=== PATIENT | female | born 1955 | race Caucasian/White ===

== ENCOUNTER → 2023-10-31 | Outpatient (CLI) | payer MEDICARE | LOC: M WHC 09:48 | PROVIDERS: ATTEND Nurse Practitioner | DX: Z12.31 Encounter for screening mammogram for malignant neoplasm of breast (principal) ==

== ENCOUNTER → 2023-11-18 | Outpatient (CLI) | payer MEDICARE | LOC: M WHC 08:59 | PROVIDERS: ATTEND Nurse Practitioner | DX: R92.8 Other abnormal and inconclusive findings on diagnostic imaging of breast (principal); N63.11 Unspecified lump in the right breast, upper outer quadrant; N63.21 Unspecified lump in the left breast, upper outer quadrant ==

== ENCOUNTER → 2025-07-20 | Outpatient (CLI) | payer MEDICARE | LOC: M RAD 15:16 | DX: D49.2 Neoplasm of unspecified behavior of bone, soft tissue, and skin (principal) ==